=== PATIENT | female | born 1950 | race Caucasian/White ===

== ENCOUNTER 2020-09-18 17:37 | Emergency (ER) | payer OTHER ==
[~2020-09-18] VITALS: Ht 160 cm; Wt 59.9 kg
[2020-09-18] MEDS ORDERED: FORTAMET500 MG (18:38)
[2020-09-18] MEDS ORDERED: GLIPIZIDE XL2.5 MG (18:38)
[2020-09-18] MEDS ORDERED: NORFLEX100MG PO (19:47)
[2020-09-18] MEDS ORDERED: KETO10TA2 PO (19:47)
[2020-09-18] MEDS ORDERED: SYMBICORT 16010.2 GM IH (19:47)
== END 2020-09-18 20:24 | disposition home or self-care (01) ==
LOC: ER 17:37
DX: M62.830 Muscle spasm of back (principal); M54.89 Other dorsalgia; J45.998 Other asthma